=== PATIENT | female | born 1975 | race Two or more races ===

== ENCOUNTER 2016-11-08 17:23 | Emergency (ER) | payer SELFPAY ==
[2016-11-08] MEDS ORDERED: CLONIDINE HCL 0.1 MG TABLET ONE (18:47)
[2016-11-08] MEDS ORDERED: IBUPROFEN 600 MG TABLET ONE (18:47)
== END 2016-11-08 19:40 | disposition home or self-care (01) ==
LOC: ED 17:23
DX: R51 Headache (principal); I10 Essential (primary) hypertension; E11.9 Type 2 diabetes mellitus without complications; Z79.84 Long term (current) use of oral hypoglycemic drugs
CPT/HCPCS: 99283 ×2; A9270 ×2